=== PATIENT | male | born 1990 ===

== ENCOUNTER 2025-06-28 17:55 | Emergency (ER) | payer OTHER, SELFPAY ==
[2025-06-28] VITALS (8 sets, daily range): BP systolic 126–151; BP diastolic 80–84; PULSE 70–88; RESP 4–21; TEMP 36.6; O2SAT 92–98; BMI 23.1
--- NOTE | 2025-06-28 18:13 | ED_ITS ---
HPI - Headache General Chief Complaint: Headache Stated Complaint: poss signs of mini stroke, PC ref Time Seen by Provider: 06/28/25 17:59 Mode of arrival: Ambulatory History of Present Illness HPI Narrative: Patient is a 35-year-old male history of TIA in November 2024 with a possible positive PFO presenting to day with blurry vision difficulty speaking. He reports that he was at work this morning around [id number] when he noticed that his vision was blurry. He denies any visual deficits or loss of vision. He reports that coworkers and clients noted he was not able to get appropriate words out. He had no facial droop. He had no significant numbness tingling or weakness in any extremities. Symptoms lasted about 45 minutes and self- resolved. He had an episode like this previously back in November who is admitted at [facility] where he had a full workup including an MRI echocardiogram, bubble study and he says there is a small probable PFO awaiting records from [facility]. He says the symptoms at that time were much worse than they were today and lasted longer. He now is completely asymptomatic and strongly encouraged by his and coworkers to come in for evaluation Related Data Allergies Allergy/AdvReac Type Severity Reaction Status Date / Time Sulfa (Sulfonamide Allergy Verified 06/28/25 18:12 Antibiotics) Patient History Social History Smoking Status: Never smoker Smoking Status: Never smoker Exam Initial Vital Signs Initial Vital Signs: Vital Signs Pulse Oximetry 92 06/28/25 18:00 GENERAL: Alert well-appearing 35-ye HEENT: Head atraumatic,EOMI, pupils reactive, face symmetric, moist mucous membranes CARDIOVASCULAR: Regular rate and rhythm without murmurs, rubs or gallops. RESPIRATORY: Breath sounds equal bilaterally, no wheezes rales or rhonchi. ABDOMEN: Soft, nontender. Normoactive bowel sounds all 4 quadrants. No guarding or rebound EXTREMITIES: Normal range of motion, no clubbing or edema. Neurovascularly intact NEUROLOGICAL: Alert and oriented x4.Normal gait and speech. Cranial nerves II through XII grossly intact. Good nmutex-bk-chgg, good bxup-kc-qpyf, strength equal bilaterally, no dysarthria or aphasia, sensation in tact to soft touch bilaterally, no visual changes, no facial droop SKIN: Warm, dry, no laceration, no petechiae, no rashes or lesions. Scores NIH Stroke Scale Level of Conciousness: Alert, keenly responsive Ask month/age: Answers both questions correctly. Open/close eyes, close hand: Performs both tasks correctly Best gaze horizontal: Normal Visual dorman: No visual loss Facial palsy: Normal symetrical movement Left arm drift: No drift for full 10 sec Right arm drift: No drift for full 10 sec Left leg drift: No drift for full 5 sec Right leg drift: No drift for full 5 sec Limb ataxia: Absent Sensory on face/arms/legs: Normal, no sensory loss Best language: No aphasia, normal Dysarthria: Normal Extinction or inattention: No abnormality Total NIH Stroke scale score: 0 Course Orders Ordered: ED Orders 06/28/25 18:10 Complete Blood Count AUTO DIFF Stat Comprehensive Metabolic Panel Stat PTT Partial Thromboplastin Addison Stat Prothrombin Time INR Stat Troponin & CK Cardiac Panel Stat 06/28/25 18:21 CT head/brain wo con Stat XR chest 1V Stat EKG-12 Lead Stat 06/28/25 19:17 CT angio head and neck Stat 06/28/25 19:33 Urine Drug Screen, Rapid Stat 06/28/25 20:10 Trop I [Troponin I] Stat Discontinued Medications Aspirin (Aspirin 81 Mg Chew Tab) 324 mg PO NOW ONE Stop: 06/28/25 19:26 Last Admin: 06/28/25 19:52 Dose: 324 mg Documented By: AMY Ondansetron HCl (Ondansetron 4 Mg/2 Ml Inj) 4 mg IV NOW PRN PRN Reason: Nausea And Vomiting Ondansetron HCl (Ondansetron 4 Mg Odt) 4 mg PO NOW PRN PRN Reason: Nausea And Vomiting Vital Signs Vital signs: Vital Signs - 8 hr 06/28/25 18:00 06/28/25 18:01 06/28/25 18:01 Temperature Pulse Rate 88 Respiratory Rate Blood Pressure 151/84 H Pulse Oximetry 92 98 Oxygen Delivery Method 06/28/25 18:08 06/28/25 18:30 06/28/25 18:30 Temperature 97.9 F Pulse Rate 79 72 Respiratory Rate 17 21 Blood Pressure 151/84 H 126/80 Pulse Oximetry 98 98 Oxygen Delivery Method Room Air 06/28/25 19:00 06/28/25 19:38 06/28/25 20:00 Temperature Pulse Rate 75 70 71 Respiratory Rate 4 L 14 18 Blood Pressure Pulse Oximetry 98 97 98 Oxygen Delivery Method 06/28/25 20:30 Temperature Pulse Rate 73 Respiratory Rate 18 Blood Pressure 126/80 Pulse Oximetry 97 Oxygen Delivery Method MDM - Headache Lab Data 06/28/25 18:10 06/28/25 18:10 Labs: Lab Results 06/28/25 06/28/25 06/28/25 Range/Units 18:10 19:33 20:10 WBC 9.0 (4.5-11.0) X10^3/uL RBC 5.12 (4.5-5.9) X10^6/uL Hgb 15.7 (13.5-17.5) g/dL Hct 45.8 (41-53) % MCV 89.5 (80-100) fL MCH 30.7 (26-34) PG MCHC 34.3 (30-36) % RDW 13.0 (11.6-14.8) % Plt Count 223 (150-400) X10^3/uL Neut % (Auto) 77.7 H (50-75) % Lymph % (Auto) 15.6 L (25-40) % Maury % (Auto) 4.4 (3-14) % Eos % (Auto) 1.2 L (2-4) % Baso % (Auto) 1.1 (0-2) % Neut # (Auto) 7000 (6017-8771) /uL Lymph # (Auto) 1400 (8229-3975) /uL Maury # (Auto) 400 (0-900) /uL Eos # (Auto) 100 (0-450) /uL Baso # (Auto) 100 (0-100) /uL PT 12.1 (9.4-12.5) SECONDS INR 1.1 (0.9-1.3) APTT 29 (25.1-36.5) SECONDS Sodium 139 (137-145) mmol/L Potassium 3.8 (3.4-5.1) mmol/L Chloride 101 (98-107) mmol/L Carbon Dioxide 29 (22-32) mmol/L BUN 16 (9-20) mg/dL Creatinine 0.82 (0.66-1.25) mg/dL Estimated GFR > 60 (>60) mL/min BUN/Creatinine Ratio 19.5 (6-22) Glucose 120 H (70-99) mg/dL Calcium 9.3 (8.4-10.2) mg/dL Total Bilirubin 1.0 (0.2-1.3) mg/dL AST 45 (17-59) IU/L ALT 30 (<50) IU/L Alkaline Phosphatase 43 (38-126) U/L Total Creatine Kinase 527 H (55-170) U/L Troponin I 0.020 < 0.012 (0.01-0.034) ng/mL Total Protein 7.8 (6.3-8.2) g/dL Albumin 4.7 (3.5-5.0) g/dL Globulin 3.1 (1.7-4.1) g/dL Albumin/Globulin Ratio 1.5 (1.0-2.8) U Opiates 300ng/mL cut Negative (Negative) Ur Oxycodone Screen Negative (Negative) Urine Methadone Screen Negative (Negative) Ur Barbiturates Screen Negative (Negative) U Tricyclic Antidepress Negative (Negative) Ur Phencyclidine Scrn Negative (Negative) Ur Amphetamines Screen Negative (Negative) U Methamphetamines Scrn Negative (Negative) Ur MDMA Scrn (Ecstasy) Negative (Negative) U Benzodiazepines Scrn Negative (Negative) Urine Cocaine Screen Negative (Negative) U Marijuana (THC) Screen Negative (Negative) Urine pH Normal (Normal) Urine Specific [place] Normal (Normal) Ur Creatinine Normal (Normal) Urine Dip Bedside Urine Glucose Negative Bedside Urine Bilirubin - Negative Bedside Urine Ketone +/- 5 Urine Specific [place] 1.025 Bedside Urine Occult Blood - Negative Bedside Urine pH 6.0 Bedside Urine Protein - Negative Bedside Urine Urobilinogen - Negative Bedside Urine Nitrite - Negative Bedside Urine Leukocytes - Negative Esterase Imaging Data CT scan - head: Radiologist's Impression: PROCEDURE: CT HEAD/BRAIN WO CON INDICATIONS: TIA symptoms TECHNIQUE: Noncontrast 4.5 mm thick angled axial sections acquired from the foramen magnum to the vertex, with coronal and sagittal reformats. For radiation dose reduction, the following was used: automated exposure control, adjustment of mA and/or kV according to patient size. COMPARISON: None. FINDINGS: Image quality: Diagnostic. CSF spaces: Basal cisterns are patent. No extra-axial fluid collections. Ventricles are normal in size and shape. Brain: No midline shift. No intracranial mass effect or hemorrhage. Alanis- white matter interface is normal. Skull and face: Calvarium and visualized facial bones are intact, without suspicious lesions. Sinuses: Visualized sinuses and mastoids are clear. IMPRESSION: No acute intracranial pathology. Dictated by: Salas Tan M.D. on 06/28/2025 at 18:44 CTA - brain/neck: Radiologist's Impression: PROCEDURE: CT ANGIO HEAD AND NECK INDICATIONS: speech difficulty now resolved TECHNIQUE: After the administration of intravenous contrast, 1 mm thick sections acquired from the aortic arch through the [place] of [place]. 3-dimensional lrxytwp-mfdxuyvrj-orjdwhzddx (MIP) and/or volume rendering reformats were acquired of the central intracranial vasculature and neck separately. For radiation dose reduction, the following was used: automated exposure control, adjustment of mA and/or kV according to patient size. COMPARISON: None. FINDINGS: Image quality: Diagnostic. Cerebral CT Angiogram: Internal carotid arteries: No acute findings. Intracranial ICA are patent with no significant stenosis. No occlusion. No aneurysm. Anterior cerebral arteries: Unremarkable. No significant stenosis. No occlusion. No aneurysm. Middle cerebral arteries: Unremarkable. No significant stenosis. No occlusion. No aneurysm. Posterior cerebral arteries: Unremarkable. No significant stenosis. No occlusion. No aneurysm. Basilar artery: Unremarkable. No significant stenosis. No occlusion. No aneurysm. Vertebral arteries: Unremarkable as visualized. Dural venous sinuses: Unremarkable given phase of enhancement. Other: Arterial phase appearance of the brain parenchyma is unremarkable. Neck CT Angiogram: Internal carotid arteries: Unremarkable. No significant stenosis. No dissection or occlusion. Common carotid arteries: Unremarkable. No significant stenosis. No dissection or occlusion. External carotid arteries: Unremarkable. No occlusion. Vertebral arteries: Unremarkable. No significant stenosis. No dissection or occlusion. Aortic Arch and Mediastinum: Partially visualized aortic arch unremarkable without evidence of aneurysm. Origins of the great vessels unremarkable. Other: Arterial phase soft tissues of the neck and chest are unremarkable. IMPRESSION: 1. No significant intracranial arterial abnormality is seen. 2. No significant abnormality is seen within the arteries of the neck. Any quantitative measurements of stenosis were performed using NASCET criteria. Dictated by: Salas Tan M.D. on 06/28/2025 at 19:49 Approved by: Salas Tan M.D. on 06/28/2025 at 19:52 Chest x-ray: Radiologist's Impression: PROCEDURE: XR CHEST 1V INDICATIONS: Possible stroke TECHNIQUE: One view of the chest was acquired. COMPARISON: None. FINDINGS: Surgical changes and devices: None. Lungs and pleura: Lungs are clear. No pleural effusions or pneumothorax. Mediastinum: Mediastinal contours appear normal. Heart size is normal. Bones and chest wall: No suspicious bony lesions. Overlying soft tissues appear unremarkable. IMPRESSION: No acute cardiopulmonary pathology. Dictated by: Salas Tan M.D. on 06/28/2025 at 18:57 ECG Data Attestation: I personally reviewed and interpreted this ECG as follows: Prior ECG tracings: available for review Interpretation: Normal sinus rhythm rate 72 WA interval 166 QRS [address] changes no T- wave inversion MDM Narrative Medical decision making narrative: MDM CC: Blurry blurry vision difficulty speaking possible TIA Complicating co-morbidities: Dad of [place] at age 40, prior TIA Data collected from: Patient and Medical records reviewed: Attempted to get records from [facility], did not recieve Differential considered: TIA versus CVA versus visual disturbance Exam documented above, pertinent findings include: Alert well-appearing 35-year-old male no acute distress NIH 0 Lab Test results independently reviewed as above. Pertinent findings: CBC no leukocytosis no anemia CMP no electrolyte abnormalities creatinine 0.8 glucose 120 Bilirubin liver enzymes lipase within normal limits Troponin0.02-->0.12 Independently reviewed EKG as above Sinus rhythm no ischemia Imaging studies independently reviewed: Head CT no intracranial process CT angio no large vessel occlusion Consultations: 1924 Dr. Hedrick, stroke Neurology at [facility] updated patient's symptoms test results reports, aware that patient had full workup at [facility] though I am not able to see the records he unfortunately is not able to see the records either. States that if patient had full workup earlier this year no need to stay overnight low risk for stroke. Agrees that patient needs to take aspirin daily Treatments: Aspirin Re-evaluations: Patient remains symptom-free Discussion: Long discussion with patient and . Sounds as though patient does have a PFO it is likely small. He has not been taking aspirin daily but was told to take aspirin and hyperlipidemia medication which he is not taking. We discussed that he at least needs aspirin daily he certainly needs a primary care provider which he understands and may need referral to other specialist such as Neurology and/or Cardiology. We also had education in regards to stroke symptoms and need for immediate evaluation in the emergency department for possible thrombolytics. He and both understand this as well. At this time they feel trouble going home with strict return precautions Discharge Plan Departure Patient Disposition: Home Clinical Impression: Brain TIA Instructions: DI for Transient Ischemic Attack Activity Restrictions/Additional Instructions: *You have been diagnosed with TIA *What to do: at this time please get a primary care provider for follow-up. You may need other referrals to Cardiology and possibly Neurology *Continue to take medications as directed aspirin 81 mg daily *Follow up with your primary care provider in 2-3 days or call [phone] *Return to ER if you should have increasing weakness difficulty speaking facial droop loss of vision[or] any new, worsening or concerning symptoms Referrals: Tripp Del Valle DO [Primary Care Provider, Family Practice] Stand Alone Forms: Patient Portal/API
--- NOTE | 2025-06-28 18:21 | DI.CT.S_ITS ---
PROCEDURE: CT HEAD/BRAIN WO CON INDICATIONS: TIA symptoms TECHNIQUE: Noncontrast 4.5 mm thick angled axial sections acquired from the foramen magnum to the vertex, with coronal and sagittal reformats. For radiation dose reduction, the following was used: automated exposure control, adjustment of mA and/or kV according to patient size. COMPARISON: None. FINDINGS: Image quality: Diagnostic. CSF spaces: Basal cisterns are patent. No extra-axial fluid collections. Ventricles are normal in size and shape. Brain: No midline shift. No intracranial mass effect or hemorrhage. Alanis- white matter interface is normal. Skull and face: Calvarium and visualized facial bones are intact, without suspicious lesions. Sinuses: Visualized sinuses and mastoids are clear. IMPRESSION: No acute intracranial pathology. Dictated by: Salas Tan M.D. on 06/28/2025 at 18:44 Approved by: Salas Tan M.D. on 06/28/2025 at 18:44
--- NOTE | 2025-06-28 18:21 | DI.RAD.S_ITS ---
PROCEDURE: XR CHEST 1V INDICATIONS: Possible stroke TECHNIQUE: One view of the chest was acquired. COMPARISON: None. FINDINGS: Surgical changes and devices: None. Lungs and pleura: Lungs are clear. No pleural effusions or pneumothorax. Mediastinum: Mediastinal contours appear normal. Heart size is normal. Bones and chest wall: No suspicious bony lesions. Overlying soft tissues appear unremarkable. IMPRESSION: No acute cardiopulmonary pathology. Dictated by: Salas Tan M.D. on 06/28/2025 at 18:57 Approved by: Salas Tan M.D. on 06/28/2025 at 18:57
[2025-06-28 18:30] LABS: Add Manual Diff / Slide Review NO; Hematocrit 45.8 % (41-53); Hemoglobin 15.7 g/dL (13.5-17.5); INR 1.1 (0.9-1.3); Lymphocytes Absolute Auto 1400 /uL (1100-4500); Mean Corpuscular HGB Conc 34.3 % (30-36); Mean Corpuscular Hemoglobin 30.7 PG (26-34); Mean Corpuscular Volume 89.5 fL (80-100); Platelet Count 223 X10^3/uL (150-400); Prothrombin Time 12.1 SECONDS (9.4-12.5)
[2025-06-28 18:33] LABS: Alanine Aminotransferase 30 IU/L (<50); Albumin 4.7 g/dL (3.5-5.0); Albumin Globulin Ratio 1.5 (1.0-2.8); Alkaline Phosphatase 43 U/L (38-126); Blood Urea Nitrogen 16 mg/dL (9-20); Calcium 9.3 mg/dL (8.4-10.2); Carbon Dioxide 29 mmol/L (22-32); Chloride 101 mmol/L (98-107); Creatine Kinase 527 U/L (55-170); Estimated Glomerular Filt Rate > 60 mL/min (>60); Globulin 3.1 g/dL (1.7-4.1); Glucose 120 mg/dL (70-99); PTT Partial Thromboplastin Tim 29 SECONDS (25.1-36.5); Sodium 139 mmol/L (137-145); Total Protein 7.8 g/dL (6.3-8.2)
[2025-06-28 18:35] LABS: HEMOLYSIS 55 (0-50); Potassium 3.8 mmol/L (3.4-5.1)
[2025-06-28 18:46] LABS: Troponin I 0.020 ng/mL (0.01-0.034)
--- NOTE | 2025-06-28 19:17 | DI.CT.S_ITS ---
PROCEDURE: CT ANGIO HEAD AND NECK INDICATIONS: speech difficulty now resolved TECHNIQUE: After the administration of intravenous contrast, 1 mm thick sections acquired from the aortic arch through the [place] of [place]. 3-dimensional qrvakux-nkglnatso-nplpsgzlsz (MIP) and/or volume rendering reformats were acquired of the central intracranial vasculature and neck separately. For radiation dose reduction, the following was used: automated exposure control, adjustment of mA and/or kV according to patient size. COMPARISON: None. FINDINGS: Image quality: Diagnostic. Cerebral CT Angiogram: Internal carotid arteries: No acute findings. Intracranial ICA are patent with no significant stenosis. No occlusion. No aneurysm. Anterior cerebral arteries: Unremarkable. No significant stenosis. No occlusion. No aneurysm. Middle cerebral arteries: Unremarkable. No significant stenosis. No occlusion. No aneurysm. Posterior cerebral arteries: Unremarkable. No significant stenosis. No occlusion. No aneurysm. Basilar artery: Unremarkable. No significant stenosis. No occlusion. No aneurysm. Vertebral arteries: Unremarkable as visualized. Dural venous sinuses: Unremarkable given phase of enhancement. Other: Arterial phase appearance of the brain parenchyma is unremarkable. Neck CT Angiogram: Internal carotid arteries: Unremarkable. No significant stenosis. No dissection or occlusion. Common carotid arteries: Unremarkable. No significant stenosis. No dissection or occlusion. External carotid arteries: Unremarkable. No occlusion. Vertebral arteries: Unremarkable. No significant stenosis. No dissection or occlusion. Aortic Arch and Mediastinum: Partially visualized aortic arch unremarkable without evidence of aneurysm. Origins of the great vessels unremarkable. Other: Arterial phase soft tissues of the neck and chest are unremarkable. IMPRESSION: 1. No significant intracranial arterial abnormality is seen. 2. No significant abnormality is seen within the arteries of the neck. Any quantitative measurements of stenosis were performed using NASCET criteria. Dictated by: Salas Tan M.D. on 06/28/2025 at 19:49 Approved by: Salas Tan M.D. on 06/28/2025 at 19:52
--- NOTE | 2025-06-28 19:41 | EKG_ITS ---
[facility] [address] [place] [id number] Test Date: 2025-06-28 Pat Name: Toni Oneal Department: [facility] Room: Gender: Male [employer]: AMY : 1990 Requested By: Order Number: [id number] Reading MD: César Bal MD Measurements Intervals [place] Rate: 72 P: 81 [place]: 166 QRS: 60 QRSD: 116 T: 59 QT: 392 QTc: 429 Interpretive Statements Normal sinus rhythm Incomplete right bundle branch block Minimal voltage criteria for LVH, may be normal variant ( Sokolow-Pérez ) NO PRIOR TRACING Electronically Signed On 06-29-2025 7:29:05 PST by César Bal MD
[2025-06-28 19:44] LABS: UR Morphine/Opiate cutoff 300 Negative (Negative); Ur Specific Gravity Normal (Normal); Urine MDMA Negative (Negative); Urine Methamphetamines Negative (Negative); Urine Tetrahydrocannabinol Negative (Negative); Urine Tricyclic Antidepressant Negative (Negative)
[2025-06-28] MEDS: ASPIRIN 81 MG CHEW TAB 324 MG PO (19:52)
[2025-06-28 20:41] LABS: Troponin I < 0.012 ng/mL (0.01-0.034)
== END 2025-06-28 21:03 | disposition home or self-care (01) ==
PROVIDERS: Emergency Provider Emergency Medicine; PCP Family Medicine
DX: G45.9 Transient cerebral ischemic attack, unspecified (principal); R29.700 NIHSS score 0; Z86.73 Personal history of transient ischemic attack (TIA), and cerebral infarction without residual deficits
CPT/HCPCS: 36415; 70450; 70496; 70498; 71045; 80053; 80305; 81003; 82550; 84484; 85025; 85610; 85730; 93005; 99284; Q9967